=== PATIENT | male | born 1950 | race Caucasian/White ===

== ENCOUNTER 2016-09-22 00:01 | Inpatient (IN) | payer MEDICARE ==
[2016-09-22 00:24] VITALS: BP 121/70
[2016-09-22] MEDS: Sodium Chloride 0.9% 1,000 ML IV SCH ×2 (02:31→14:58)
[2016-09-22] MEDS: Albuterol/Ipratropium Neb 3 ML AERS HHN SCH ×6 (02:56→23:19)
[2016-09-22 07:23] LABS: % BASOPHILS 0.1 % (0.0-2.0); % EOSINOPHILS 0.1 % (0.0-5.0); % LYMPHOCYTES 9.5 % (20.0-50.0); % MONOCYTES 1.2 % (2.0-10.0); % NEUTROPHILS 89.1 % (40.0-80.0); HEMOGLOBIN 15.3 gm/dL (12.6-17.4); MEAN CELL VOLUME 91.5 fl (80-99); MEAN CORPUSCULAR HEMOGLOBIN 30.5 pg (27.0-31.0); MEAN CORPUSCULAR HGB CONC 33.4 pg (28.0-36.0); MEAN PLATELET VOLUME 8.9 fl; PLATELET COUNT 196 Th/cmm (150-400); RED BLOOD COUNT 5.02 Mil/cmm (3.80-5.80); RED CELL DISTRIBUTION WIDTH 13.2 % (11.5-20.0); WHITE BLOOD COUNT 4.5 Th/cmm (4.8-10.8)
[2016-09-22 07:51] LABS: ALB/GLOB RATIO 1.5 (1.0-1.8); ALKALINE PHOSPHATASE 65 U/L (34-104); ANION GAP 13.9 (7.0-16.0); BILIRUBIN,TOTAL 0.3 mg/dL (0.3-1.0); BUN - UREA NITROGEN 17 mg/dL (7-25); BUN/CREATININE RATIO 21.3; CALCIUM SERUM 9.6 mg/dL (8.6-10.3); CARBON DIOXIDE 26.4 mEq/L (21.0-31.0); CHLORIDE 106 mEq/L (98-107); CREATININE - SERUM 0.8 mg/dL (0.7-1.3); GLUCOSE 154 mg/dL (70-105); POTASSIUM SERUM 4.3 mEq/L (3.5-5.1); SGOT 19 U/L (13-39); SGPT/ALT 21 U/L (7-52); SODIUM SERUM 142 mEq/L (136-145)
--- NOTE | 2016-09-22 08:43 | Diagnostic Imaging Report ---
Portable chest x-ray HISTORY: Shortness of breath, COPD The overall heart size is normal. No acute focal pulmonary processes. No hilar or mediastinal abnormalities. Atherosclerotic calcification seen within the aortic arch. IMPRESSION: 1. No acute focal pulmonary processes 2. Atherosclerotic vascular changes
[2016-09-22] MEDS: methylPREDNISolone SS 40 mg Vial IVP SCH ×2 (09:00→18:04)
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
--- NOTE | 2016-09-22 21:18 | Admit Criteria Form ---
Admit Criteria Forms - Admit Criteria Diagnosis: COPD Clinical Indications for Admission to Inpatient Care (Place 'X' for any and all applicable criteria): Admission is indicated for ANY ONE of the following (1)(2)(3): [X]I. Acute exacerbation by high-risk comorbidity (e.g., pneumonia, dysrhythmia, heart failure, pleural effusion, pneumothorax) or severe underlying COPD (e.g., steroid dependent) [ ]II. Inpatient admission required rather than observation care (see Chronic Obstructive Pulmonary Disease: Observation Care) because of ANY ONE of the following: [ ]a) New or pre-existing signs or symptoms of COPD (eg, dyspnea or Tachypnea at rest or with minimal activity) that persist despite outpatient and observation care treatment [ ]b) New-onset hypoxemia (room air SaO2 less than 90%, PO2 less than 60 mm Hg (8.0 kPa)) that persists despite outpatient and observation care treatment [ ]c) Worsening of pre-existing hypoxemia (eg, new or increased requirement for supplemental oxygen to maintain oxygenation at baseline level) that persists despite outpatient and observation care treatment, with oxygen treatment needs performable only in acute inpatient setting [ ]d) Hypercarbia (PCO2 greater than 40 mm Hg (5.3 kPa))-induced respiratory acidosis (pH less than 7.35) that persists despite outpatient and observation care treatment [ ]e) Supplemental oxygen or respiratory treatments for over 24 hours that are performable only in acute inpatient setting [ ]f) Chest tube placement with active evacuation (e.g., suction, drainage) (5) [ ]g) Other condition, treatment or monitoring requiring inpatient admission [ ]III. Planned invasive surgical or diagnostic procedures requiring acute- care hospitalization [ ]IV. Acute respiratory failure (e.g., uncompensated hypercarbia, severe hypoxemia) [ ]V. Severe comorbid condition (e.g., severe steroid myopathy, acute vertebral fracture) that has acutely worsened pulmonary function [ ]. Confusion state, lethargy, obtundation, stupor or coma Extended stay beyond goal length of stay may be needed for (31)(32): [ ]a ) Respiratory Failure. [ ]b) Severe or persisting hypoxemia or hypercarbia [ ]c) Severe or persistent dyspnea [ ]d) Comorbidities (e.g. chronic heart failure, atrial fibrillation with rapid response, pneumonia) [ ]e) Malnutrition The original [facility] content created by [facility] has been revised. The portions of the content which have been revised are identified through the use of italic text or in bold, and [facility] has neither reviewed nor approved the modified material. All other unmodified content is copyright [facility]. Please see references footnoted in the original [facility] edition 2016 Admit Criteria Met?: Yes
[2016-09-23] MEDS: methylPREDNISolone SS 40 mg Vial IVP SCH ×4 (00:08→17:53)
[2016-09-23] MEDS: Albuterol/Ipratropium Neb 3 ML AERS HHN SCH ×6 (02:08→23:17)
[2016-09-23 05:44] LABS: HEMATOCRIT 43.8 % (39.0-49.0); HEMOGLOBIN 14.7 gm/dL (12.6-17.4); MEAN CELL VOLUME 91.2 fl (80-99); MEAN CORPUSCULAR HEMOGLOBIN 30.6 pg (27.0-31.0); MEAN CORPUSCULAR HGB CONC 33.6 pg (28.0-36.0); MEAN PLATELET VOLUME 7.8 fl; PLATELET COUNT 192 Th/cmm (150-400); RED CELL DISTRIBUTION WIDTH 13.2 % (11.5-20.0)
[2016-09-23 05:59] LABS: WHITE BLOOD COUNT 10.2 Th/cmm (4.8-10.8)
[2016-09-23 06:12] LABS: ALB/GLOB RATIO 1.5 (1.0-1.8); ALKALINE PHOSPHATASE 59 U/L (34-104); BILIRUBIN,TOTAL 0.3 mg/dL (0.3-1.0); BUN - UREA NITROGEN 20 mg/dL (7-25); CALCIUM SERUM 9.4 mg/dL (8.6-10.3); CARBON DIOXIDE 28.1 mEq/L (21.0-31.0); CHLORIDE 106 mEq/L (98-107); CREATININE - SERUM 0.8 mg/dL (0.7-1.3); GLUCOSE 154 mg/dL (70-105); POTASSIUM SERUM 4.1 mEq/L (3.5-5.1); SGOT 17 U/L (13-39); SGPT/ALT 20 U/L (7-52); SODIUM SERUM 140 mEq/L (136-145)
[2016-09-23 08:21] LABS: BAND NEUTROPHILE 2 % (0-10); NEUTROPHILS 92 % (40-80); PLATELET ESTIMATE ADEQUATE (NORMAL); TOTAL CELLS COUNTED 100
--- NOTE | 2016-09-23 12:36 | General Progress Note ---
Subjective - Review of Systems Service Date: 09/23/16 Subjective: I am breathing better Objective - Results Result Diagrams: 09/23/16 05:28 09/23/16 05:28 Recent Labs: Laboratory Last Values WBC 10.2 Th/cmm (4.8-10.8) D 09/23/16 05:28 RBC 4.80 Mil/cmm (3.80-5.80) 09/23/16 05:28 Hgb 14.7 gm/dL (12.6-17.4) 09/23/16 05:28 Hct 43.8 % (39.0-49.0) 09/23/16 05:28 MCV 91.2 fl (80-99) 09/23/16 05:28 MCH 30.6 pg (27.0-31.0) 09/23/16 05:28 MCHC Differential 33.6 pg (28.0-36.0) 09/23/16 05:28 RDW 13.2 % (11.5-20.0) 09/23/16 05:28 Plt Count 192 Th/cmm (150-400) 09/23/16 05:28 MPV 7.8 fl 09/23/16 05:28 Neutrophils % 89.1 % (40.0-80.0) H 09/22/16 06:00 Band Neutrophils % 2 % (0-10) 09/23/16 05:28 Lymphocytes % 9.5 % (20.0-50.0) L 09/22/16 06:00 Monocytes % 1.2 % (2.0-10.0) L 09/22/16 06:00 Eosinophils % 0.1 % (0.0-5.0) 09/22/16 06:00 Basophils % 0.1 % (0.0-2.0) 09/22/16 06:00 Neutrophils (Manual) 92 % (40-80) H 09/23/16 05:28 Lymphocytes 4 % (20-50) L 09/23/16 05:28 Monocytes 2 % (2-10) 09/23/16 05:28 Platelet Estimate ADEQUATE (NORMAL) 09/23/16 05:28 Sodium 140 mEq/L (136-145) 09/23/16 05:28 Potassium 4.1 mEq/L (3.5-5.1) 09/23/16 05:28 Chloride 106 mEq/L (98-107) 09/23/16 05:28 Carbon Dioxide 28.1 mEq/L (21.0-31.0) 09/23/16 05:28 Anion Gap 10.0 (7.0-16.0) 09/23/16 05:28 BUN 20 mg/dL (7-25) 09/23/16 05:28 Creatinine 0.8 mg/dL (0.7-1.3) 09/23/16 05:28 Est GFR ( Amer) > 60.0 ml/min (>90) 09/23/16 05:28 Est GFR (Non-Af Amer) > 60.0 ml/min 09/23/16 05:28 BUN/Creatinine Ratio 25.0 09/23/16 05:28 Glucose 154 mg/dL (70-105) H 09/23/16 05:28 POC Glucose 173 MG/DL (70 - 105) H 09/22/16 08:14 Calcium 9.4 mg/dL (8.6-10.3) 09/23/16 05:28 Total Bilirubin 0.3 mg/dL (0.3-1.0) 09/23/16 05:28 AST 17 U/L (13-39) 09/23/16 05:28 ALT 20 U/L (7-52) 09/23/16 05:28 Alkaline Phosphatase 59 U/L (34-104) 09/23/16 05:28 Total Protein 6.7 gm/dL (6.0-8.3) 09/23/16 05:28 Albumin 4.0 gm/dL (4.2-5.5) L 09/23/16 05:28 Globulin 2.7 gm/dL 09/23/16 05:28 Albumin/Globulin Ratio 1.5 (1.0-1.8) 09/23/16 05:28 TSH 0.56 uIU/ml (0.34-5.60) 09/22/16 06:00 - Physical Exam Vitals and I&O: Vital Signs Temp 98.2 F 09/23/16 08:00 Pulse 97 09/23/16 08:00 Resp 20 09/23/16 11:46 BP 128/86 09/23/16 08:00 Pulse Ox 96 09/23/16 08:00 Intake & Output 09/22/16 09/23/16 09/23/16 18:59 06:59 18:59 Intake Total 1233.75 250 Output Total 600 Balance 633.75 250 Intake: Intake, IV Amount 933.75 50 Sodium Chloride 0.9% 1, 933.75 000 ml @ 75 mls/hr IV . [id number] [facility] Rx#:[id number] cefTRIAXone 1 gm In 50 Dextrose 5% 50 ml @ 100 mls/hr IV Q24H [facility] Rx#: [id number] Oral 300 200 Output: Urine 600 Active Medications: Current Medications Acetaminophen (Tylenol) 650 mg PO Q4H PRN PRN Reason: pain Stop: 11/21/16 01:14 Albuterol/Ipratropium (Duoneb Neb) 3 ml HHN Q4HRT [facility] Stop: 11/21/16 02:59 Last Admin: 09/23/16 10:58 Dose: 3 ml Ceftriaxone Sodium 1 gm/ (Dextrose) 50 mls @ 100 mls/hr IV Q24H [facility] Stop: 11/21/16 01:59 Last Infusion: 09/23/16 02:41 Dose: Infused Lorazepam (Ativan) 0.5 mg PO DAILY PRN; Protocol PRN Reason: Anxiety Stop: 11/21/16 01:14 Last Admin: 09/22/16 23:20 Dose: 0.5 mg Methylprednisolone Sodium Succinate (Solu-Medrol) 80 mg IVP Q6HR [facility] Stop: 11/22/16 00:00 Last Admin: 09/23/16 11:32 Dose: 80 mg General: Alert, Oriented x3, Cooperative, No acute distress HEENT: Atraumatic Neck: Supple Cardiovascular: Regular rate Lungs: Other (Bilateral decreased air entry, bilateral whezzing) Abdomen: Bowel sounds, Soft Extremities: Other (No edema) Neurological: Normal gait Skin: Other (Warm and dry) Psych/Mental Status: Mental status NL Assessment/Plan - Assessment Assessment: Patient is in nasal O2, breathing better. Dx: COPD exacerbation - Plan Plan: patient is nasal O2, IV ns, Albuterol breathing treatment, AB and corticoids. Follow by Pulmonology. Will continue to monitor
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
[2016-09-24] MEDS: methylPREDNISolone SS 40 mg Vial IVP SCH ×4 (00:55→17:21)
[2016-09-24] MEDS: Albuterol/Ipratropium Neb 3 ML AERS HHN SCH ×6 (03:15→23:23)
--- NOTE | 2016-09-24 08:57 | General Progress Note ---
Subjective - Review of Systems Service Date: 09/24/16 Subjective: I am breathing better. Objective - Results Result Diagrams: 09/23/16 05:28 09/23/16 05:28 Recent Labs: Laboratory Last Values WBC 10.2 Th/cmm (4.8-10.8) D 09/23/16 05:28 RBC 4.80 Mil/cmm (3.80-5.80) 09/23/16 05:28 Hgb 14.7 gm/dL (12.6-17.4) 09/23/16 05:28 Hct 43.8 % (39.0-49.0) 09/23/16 05:28 MCV 91.2 fl (80-99) 09/23/16 05:28 MCH 30.6 pg (27.0-31.0) 09/23/16 05:28 MCHC Differential 33.6 pg (28.0-36.0) 09/23/16 05:28 RDW 13.2 % (11.5-20.0) 09/23/16 05:28 Plt Count 192 Th/cmm (150-400) 09/23/16 05:28 MPV 7.8 fl 09/23/16 05:28 Neutrophils % 89.1 % (40.0-80.0) H 09/22/16 06:00 Band Neutrophils % 2 % (0-10) 09/23/16 05:28 Lymphocytes % 9.5 % (20.0-50.0) L 09/22/16 06:00 Monocytes % 1.2 % (2.0-10.0) L 09/22/16 06:00 Eosinophils % 0.1 % (0.0-5.0) 09/22/16 06:00 Basophils % 0.1 % (0.0-2.0) 09/22/16 06:00 Neutrophils (Manual) 92 % (40-80) H 09/23/16 05:28 Lymphocytes 4 % (20-50) L 09/23/16 05:28 Monocytes 2 % (2-10) 09/23/16 05:28 Platelet Estimate ADEQUATE (NORMAL) 09/23/16 05:28 Sodium 140 mEq/L (136-145) 09/23/16 05:28 Potassium 4.1 mEq/L (3.5-5.1) 09/23/16 05:28 Chloride 106 mEq/L (98-107) 09/23/16 05:28 Carbon Dioxide 28.1 mEq/L (21.0-31.0) 09/23/16 05:28 Anion Gap 10.0 (7.0-16.0) 09/23/16 05:28 BUN 20 mg/dL (7-25) 09/23/16 05:28 Creatinine 0.8 mg/dL (0.7-1.3) 09/23/16 05:28 Est GFR ( Amer) > 60.0 ml/min (>90) 09/23/16 05:28 Est GFR (Non-Af Amer) > 60.0 ml/min 09/23/16 05:28 BUN/Creatinine Ratio 25.0 09/23/16 05:28 Glucose 154 mg/dL (70-105) H 09/23/16 05:28 POC Glucose 173 MG/DL (70 - 105) H 09/22/16 08:14 Calcium 9.4 mg/dL (8.6-10.3) 09/23/16 05:28 Total Bilirubin 0.3 mg/dL (0.3-1.0) 09/23/16 05:28 AST 17 U/L (13-39) 09/23/16 05:28 ALT 20 U/L (7-52) 09/23/16 05:28 Alkaline Phosphatase 59 U/L (34-104) 09/23/16 05:28 Total Protein 6.7 gm/dL (6.0-8.3) 09/23/16 05:28 Albumin 4.0 gm/dL (4.2-5.5) L 09/23/16 05:28 Globulin 2.7 gm/dL 09/23/16 05:28 Albumin/Globulin Ratio 1.5 (1.0-1.8) 09/23/16 05:28 TSH 0.56 uIU/ml (0.34-5.60) 09/22/16 06:00 - Physical Exam Vitals and I&O: Vital Signs Temp 98.6 F 09/24/16 00:00 Pulse 92 09/24/16 08:10 Resp 18 09/24/16 08:10 BP 138/96 09/24/16 00:00 Pulse Ox 94 09/24/16 08:10 Intake & Output 09/23/16 09/24/16 09/24/16 18:59 06:59 18:59 Intake Total 800 450 Balance 800 450 Intake: Intake, IV Amount 50 cefTRIAXone 1 gm In 50 Dextrose 5% 50 ml @ 100 mls/hr IV Q24H [facility] Rx#: [id number] Oral 800 400 Other: # Voids 2 2 Active Medications: Current Medications Acetaminophen (Tylenol) 650 mg PO Q4H PRN PRN Reason: pain Stop: 11/21/16 01:14 Albuterol/Ipratropium (Duoneb Neb) 3 ml HHN Q4HRT [facility] Stop: 11/21/16 02:59 Last Admin: 09/24/16 07:52 Dose: 3 ml Ceftriaxone Sodium 1 gm/ (Dextrose) 50 mls @ 100 mls/hr IV Q24H [facility] Stop: 11/21/16 01:59 Last Infusion: 09/24/16 02:30 Dose: Infused Lorazepam (Ativan) 0.5 mg PO DAILY PRN; Protocol PRN Reason: Anxiety Stop: 11/21/16 01:14 Last Admin: 09/24/16 00:56 Dose: 0.5 mg Methylprednisolone Sodium Succinate (Solu-Medrol) 80 mg IVP Q6HR [facility] Stop: 11/22/16 00:00 Last Admin: 09/24/16 06:58 Dose: 80 mg General: Alert, Oriented x3, Cooperative, Mild distress HEENT: Atraumatic Neck: Supple Cardiovascular: Regular rate Lungs: Other (Bilateral decreased air entry. Bilateral whezzing) Abdomen: Bowel sounds, Soft Extremities: Other (No edema) Neurological: Normal gait Skin: Other (Warm and dry) Psych/Mental Status: Mental status NL Assessment/Plan - Assessment Assessment: Patient is in nasal O2, breathing better. Yesterday PT eval was done and patient was able to walk alone well but O2 saturation drop to below 90. Patient will need O2 machine. Dx: COPD exacerbation - Plan Plan: patient is nasal O2, IV ns, Albuterol breathing treatment, AB and corticoids. Follow by Pulmonology. Will continue to monitor.
[2016-09-24] MEDS: Budesonide 0.5 Mg/2 mL Ud HHN SCH (19:07)
[2016-09-25] MEDS: Albuterol/Ipratropium Neb 3 ML AERS HHN SCH ×5 (03:17→19:24)
[2016-09-25] MEDS: methylPREDNISolone SS 40 mg Vial IVP SCH ×4 (06:49→20:46)
[2016-09-25] MEDS: Budesonide 0.5 Mg/2 mL Ud HHN SCH ×2 (07:19→19:24)
--- NOTE | 2016-09-25 09:01 | General Progress Note ---
Subjective - Review of Systems Service Date: 09/25/16 Subjective: I am breathing better. Objective - Results Result Diagrams: 09/23/16 05:28 09/23/16 05:28 Recent Labs: Laboratory Last Values WBC 10.2 Th/cmm (4.8-10.8) D 09/23/16 05:28 RBC 4.80 Mil/cmm (3.80-5.80) 09/23/16 05:28 Hgb 14.7 gm/dL (12.6-17.4) 09/23/16 05:28 Hct 43.8 % (39.0-49.0) 09/23/16 05:28 MCV 91.2 fl (80-99) 09/23/16 05:28 MCH 30.6 pg (27.0-31.0) 09/23/16 05:28 MCHC Differential 33.6 pg (28.0-36.0) 09/23/16 05:28 RDW 13.2 % (11.5-20.0) 09/23/16 05:28 Plt Count 192 Th/cmm (150-400) 09/23/16 05:28 MPV 7.8 fl 09/23/16 05:28 Neutrophils % 89.1 % (40.0-80.0) H 09/22/16 06:00 Band Neutrophils % 2 % (0-10) 09/23/16 05:28 Lymphocytes % 9.5 % (20.0-50.0) L 09/22/16 06:00 Monocytes % 1.2 % (2.0-10.0) L 09/22/16 06:00 Eosinophils % 0.1 % (0.0-5.0) 09/22/16 06:00 Basophils % 0.1 % (0.0-2.0) 09/22/16 06:00 Neutrophils (Manual) 92 % (40-80) H 09/23/16 05:28 Lymphocytes 4 % (20-50) L 09/23/16 05:28 Monocytes 2 % (2-10) 09/23/16 05:28 Platelet Estimate ADEQUATE (NORMAL) 09/23/16 05:28 Sodium 140 mEq/L (136-145) 09/23/16 05:28 Potassium 4.1 mEq/L (3.5-5.1) 09/23/16 05:28 Chloride 106 mEq/L (98-107) 09/23/16 05:28 Carbon Dioxide 28.1 mEq/L (21.0-31.0) 09/23/16 05:28 Anion Gap 10.0 (7.0-16.0) 09/23/16 05:28 BUN 20 mg/dL (7-25) 09/23/16 05:28 Creatinine 0.8 mg/dL (0.7-1.3) 09/23/16 05:28 Est GFR ( Amer) > 60.0 ml/min (>90) 09/23/16 05:28 Est GFR (Non-Af Amer) > 60.0 ml/min 09/23/16 05:28 BUN/Creatinine Ratio 25.0 09/23/16 05:28 Glucose 154 mg/dL (70-105) H 09/23/16 05:28 POC Glucose 173 MG/DL (70 - 105) H 09/22/16 08:14 Calcium 9.4 mg/dL (8.6-10.3) 09/23/16 05:28 Total Bilirubin 0.3 mg/dL (0.3-1.0) 09/23/16 05:28 AST 17 U/L (13-39) 09/23/16 05:28 ALT 20 U/L (7-52) 09/23/16 05:28 Alkaline Phosphatase 59 U/L (34-104) 09/23/16 05:28 Total Protein 6.7 gm/dL (6.0-8.3) 09/23/16 05:28 Albumin 4.0 gm/dL (4.2-5.5) L 09/23/16 05:28 Globulin 2.7 gm/dL 09/23/16 05:28 Albumin/Globulin Ratio 1.5 (1.0-1.8) 09/23/16 05:28 TSH 0.56 uIU/ml (0.34-5.60) 09/22/16 06:00 - Physical Exam Vitals and I&O: Vital Signs Temp 98.0 F 09/25/16 08:00 Pulse 82 09/25/16 08:00 Resp 20 09/25/16 08:00 BP 124/75 09/25/16 08:00 Pulse Ox 94 09/25/16 08:00 Intake & Output 09/24/16 09/25/16 09/25/16 18:59 06:59 18:59 Intake Total 1500 500 Balance 1500 500 Intake: Oral 1500 500 Other: # Voids 3 # Bowel Movements 1 Stool Characteristics Soft Formed Active Medications: Current Medications Acetaminophen (Tylenol) 650 mg PO Q4H PRN PRN Reason: pain Stop: 11/21/16 01:14 Albuterol/Ipratropium (Duoneb Neb) 3 ml HHN Q4HRT [facility] Stop: 11/21/16 02:59 Last Admin: 09/25/16 07:19 Dose: 3 ml Budesonide (Pulmicort) 0.5 mg HHN BIDRT [facility] Stop: 11/23/16 18:59 Last Admin: 09/25/16 07:19 Dose: 0.5 mg Ceftriaxone Sodium 1 gm/ (Dextrose) 50 mls @ 100 mls/hr IV Q24H [facility] Stop: 11/21/16 01:59 Last Admin: 09/25/16 03:00 Dose: 100 mls/hr Lorazepam (Ativan) 0.5 mg PO DAILY PRN; Protocol PRN Reason: Anxiety Stop: 11/21/16 01:14 Last Admin: 09/24/16 20:41 Dose: 0.5 mg Methylprednisolone Sodium Succinate (Solu-Medrol) 80 mg IVP Q6HR [facility] Stop: 11/22/16 00:00 Last Admin: 09/25/16 06:49 Dose: 80 mg Nicotine (Nicotine Transdermal System) 21 mg TD DAILY [facility] Stop: 11/24/16 08:59 General: Alert, Oriented x3, Cooperative, No acute distress HEENT: Atraumatic Neck: Supple Cardiovascular: Regular rate Lungs: Other (Bilateral decresed air entry and bilateral whezzing) Abdomen: Bowel sounds, Soft Extremities: Other (No edema) Neurological: Normal gait Skin: Other (Warm and dry) Psych/Mental Status: Mental status NL Assessment/Plan - Assessment Assessment: Patient is in nasal O2, breathing better. Continue with wheezing. Dx: COPD exacerbation - Plan Plan: patient is nasal O2, IV ns, Albuterol breathing treatment, AB and corticoids. Follow by Pulmonology. Possible transfer to a SNF. Will continue to monitor.
[2016-09-25] MEDS: Nicotine 21 mg/24 hr Tdm TD SCH (09:18)
[2016-09-26] MEDS: Albuterol/Ipratropium Neb 3 ML AERS HHN SCH ×6 (03:11→23:43)
[2016-09-26] MEDS: Budesonide 0.5 Mg/2 mL Ud HHN SCH ×2 (06:46→18:52)
[2016-09-26] MEDS: Nicotine 21 mg/24 hr Tdm TD SCH (08:55)
[2016-09-26] MEDS: methylPREDNISolone SS 40 mg Vial IVP SCH ×2 (08:56→20:22)
--- NOTE | 2016-09-26 09:16 | General Progress Note ---
Subjective - Review of Systems Service Date: 09/26/26 Subjective: I am breathing better. Objective - Results Result Diagrams: 09/23/16 05:28 09/23/16 05:28 Recent Labs: Laboratory Last Values WBC 10.2 Th/cmm (4.8-10.8) D 09/23/16 05:28 RBC 4.80 Mil/cmm (3.80-5.80) 09/23/16 05:28 Hgb 14.7 gm/dL (12.6-17.4) 09/23/16 05:28 Hct 43.8 % (39.0-49.0) 09/23/16 05:28 MCV 91.2 fl (80-99) 09/23/16 05:28 MCH 30.6 pg (27.0-31.0) 09/23/16 05:28 MCHC Differential 33.6 pg (28.0-36.0) 09/23/16 05:28 RDW 13.2 % (11.5-20.0) 09/23/16 05:28 Plt Count 192 Th/cmm (150-400) 09/23/16 05:28 MPV 7.8 fl 09/23/16 05:28 Neutrophils % 89.1 % (40.0-80.0) H 09/22/16 06:00 Band Neutrophils % 2 % (0-10) 09/23/16 05:28 Lymphocytes % 9.5 % (20.0-50.0) L 09/22/16 06:00 Monocytes % 1.2 % (2.0-10.0) L 09/22/16 06:00 Eosinophils % 0.1 % (0.0-5.0) 09/22/16 06:00 Basophils % 0.1 % (0.0-2.0) 09/22/16 06:00 Neutrophils (Manual) 92 % (40-80) H 09/23/16 05:28 Lymphocytes 4 % (20-50) L 09/23/16 05:28 Monocytes 2 % (2-10) 09/23/16 05:28 Platelet Estimate ADEQUATE (NORMAL) 09/23/16 05:28 Sodium 140 mEq/L (136-145) 09/23/16 05:28 Potassium 4.1 mEq/L (3.5-5.1) 09/23/16 05:28 Chloride 106 mEq/L (98-107) 09/23/16 05:28 Carbon Dioxide 28.1 mEq/L (21.0-31.0) 09/23/16 05:28 Anion Gap 10.0 (7.0-16.0) 09/23/16 05:28 BUN 20 mg/dL (7-25) 09/23/16 05:28 Creatinine 0.8 mg/dL (0.7-1.3) 09/23/16 05:28 Est GFR ( Amer) > 60.0 ml/min (>90) 09/23/16 05:28 Est GFR (Non-Af Amer) > 60.0 ml/min 09/23/16 05:28 BUN/Creatinine Ratio 25.0 09/23/16 05:28 Glucose 154 mg/dL (70-105) H 09/23/16 05:28 POC Glucose 173 MG/DL (70 - 105) H 09/22/16 08:14 Calcium 9.4 mg/dL (8.6-10.3) 09/23/16 05:28 Total Bilirubin 0.3 mg/dL (0.3-1.0) 09/23/16 05:28 AST 17 U/L (13-39) 09/23/16 05:28 ALT 20 U/L (7-52) 09/23/16 05:28 Alkaline Phosphatase 59 U/L (34-104) 09/23/16 05:28 Total Protein 6.7 gm/dL (6.0-8.3) 09/23/16 05:28 Albumin 4.0 gm/dL (4.2-5.5) L 09/23/16 05:28 Globulin 2.7 gm/dL 09/23/16 05:28 Albumin/Globulin Ratio 1.5 (1.0-1.8) 09/23/16 05:28 TSH 0.56 uIU/ml (0.34-5.60) 09/22/16 06:00 - Physical Exam Vitals and I&O: Vital Signs Temp 98.3 F 09/26/16 04:00 Pulse 83 09/26/16 07:13 Resp 18 09/26/16 07:13 BP 140/85 09/26/16 04:00 Pulse Ox 96 09/26/16 07:13 Intake & Output 09/25/16 09/26/16 09/26/16 18:59 06:59 18:59 Intake Total 1080 410 Balance 1080 410 Intake: Intake, IV Amount 50 cefTRIAXone 1 gm In 50 Dextrose 5% 50 ml @ 100 mls/hr IV Q24H [facility] Rx#: [id number] Oral 1080 360 Other: # Voids 700 3 Active Medications: Current Medications Acetaminophen (Tylenol) 650 mg PO Q4H PRN PRN Reason: pain Stop: 11/21/16 01:14 Albuterol/Ipratropium (Duoneb Neb) 3 ml HHN Q4HRT [facility] Stop: 11/21/16 02:59 Last Admin: 09/26/16 06:46 Dose: 3 ml Budesonide (Pulmicort) 0.5 mg HHN BIDRT [facility] Stop: 11/23/16 18:59 Last Admin: 09/26/16 06:46 Dose: 0.5 mg Ceftriaxone Sodium 1 gm/ (Dextrose) 50 mls @ 100 mls/hr IV Q24H [facility] Stop: 11/21/16 01:59 Last Infusion: 09/26/16 02:05 Dose: Infused Lorazepam (Ativan) 0.5 mg PO DAILY PRN; Protocol PRN Reason: Anxiety Stop: 11/21/16 01:14 Last Admin: 09/25/16 20:46 Dose: 0.5 mg Methylprednisolone Sodium Succinate (Solu-Medrol) 80 mg IVP Q12HR [facility] Stop: 11/24/16 20:59 Last Admin: 09/26/16 08:56 Dose: 80 mg Nicotine (Nicotine Transdermal System) 21 mg TD DAILY [facility] Stop: 11/24/16 08:59 Last Admin: 09/26/16 08:55 Dose: 21 mg Zolpidem Tartrate (Ambien) 5 mg PO HS PRN PRN Reason: Insomnia Stop: 11/25/16 09:12 General: Alert, Oriented x3, Cooperative, Mild distress HEENT: Atraumatic Neck: Supple Cardiovascular: Regular rate Lungs: Clear to auscultation Abdomen: Bowel sounds, Soft Extremities: Other (No edema) Neurological: Normal gait Skin: Other (Warm and dry) Psych/Mental Status: Mental status NL Assessment/Plan - Assessment Assessment: Patient is in nasal O2, breathing better. Continue with wheezing, not improving as expected. Dx: COPD exacerbation. - Plan Plan: patient is nasal O2, IV ns, Albuterol breathing treatment, AB and corticoids. Follow by Pulmonology. Will continue to monitor.
--- NOTE | 2016-09-26 09:55 | Diagnostic Imaging Report ---
CHEST X-RAY: AP view INDICATION: COPD exasperation COMPARISON: 09/22/2016 FINDINGS: The bilateral costophrenic angles are incompletely visualized. No focal consolidation or effusions. Heart size is normal. Atherosclerosis of aorta is noted. The osseous structures are intact. IMPRESSION: Chronic lung changes and probable COPD. No focal consolidation identified. Atherosclerotic vascular disease.
[2016-09-26 10:51] LABS: MEAN CELL VOLUME 92.3 fl (80-99); MEAN CORPUSCULAR HEMOGLOBIN 31.1 pg (27.0-31.0); MEAN CORPUSCULAR HGB CONC 33.7 pg (28.0-36.0); MEAN PLATELET VOLUME 8.8 fl; PLATELET COUNT 207 Th/cmm (150-400); RED BLOOD COUNT 5.37 Mil/cmm (3.80-5.80); RED CELL DISTRIBUTION WIDTH 13.2 % (11.5-20.0); WHITE BLOOD COUNT 10.4 Th/cmm (4.8-10.8)
[2016-09-26 10:58] LABS: ALB/GLOB RATIO 1.5 (1.0-1.8); ALKALINE PHOSPHATASE 54 U/L (34-104); ANION GAP 5.1 (7.0-16.0); BILIRUBIN,TOTAL 0.5 mg/dL (0.3-1.0); BUN - UREA NITROGEN 22 mg/dL (7-25); BUN/CREATININE RATIO 24.4; CALCIUM SERUM 9.5 mg/dL (8.6-10.3); CHLORIDE 102 mEq/L (98-107); CREATININE - SERUM 0.9 mg/dL (0.7-1.3); GLUCOSE 163 mg/dL (70-105); HEMATOCRIT 49.6 % (39.0-49.0); HEMOGLOBIN 16.7 gm/dL (12.6-17.4); POTASSIUM SERUM 4.1 mEq/L (3.5-5.1); SGOT 19 U/L (13-39); SGPT/ALT 25 U/L (7-52); SODIUM SERUM 135 mEq/L (136-145)
[2016-09-26 11:37] LABS: BAND NEUTROPHILE 1 % (0-10); NEUTROPHILS 88 % (40-80); PLATELET ESTIMATE ADEQUATE (NORMAL); PLATELET MORPHOLOGY NORMAL (NORMAL); TOTAL CELLS COUNTED 100
[2016-09-27] MEDS: Albuterol/Ipratropium Neb 3 ML AERS HHN SCH ×6 (02:55→22:23)
[2016-09-27] MEDS: Budesonide 0.5 Mg/2 mL Ud HHN SCH ×2 (06:53→18:33)
[2016-09-27] MEDS: Nicotine 21 mg/24 hr Tdm TD SCH (08:17)
[2016-09-27] MEDS: methylPREDNISolone SS 40 mg Vial IVP SCH ×2 (08:19→20:30)
--- NOTE | 2016-09-27 09:24 | General Progress Note ---
Subjective - Review of Systems Service Date: 09/27/16 Subjective: I want to go home Objective - Results Result Diagrams: 09/26/16 10:15 09/26/16 10:15 Recent Labs: Laboratory Last Values WBC 10.4 Th/cmm (4.8-10.8) 09/26/16 10:15 RBC 5.37 Mil/cmm (3.80-5.80) 09/26/16 10:15 Hgb 16.7 gm/dL (12.6-17.4) D 09/26/16 10:15 Hct 49.6 % (39.0-49.0) H D 09/26/16 10:15 MCV 92.3 fl (80-99) 09/26/16 10:15 MCH 31.1 pg (27.0-31.0) H 09/26/16 10:15 MCHC Differential 33.7 pg (28.0-36.0) 09/26/16 10:15 RDW 13.2 % (11.5-20.0) 09/26/16 10:15 Plt Count 207 Th/cmm (150-400) 09/26/16 10:15 MPV 8.8 fl 09/26/16 10:15 Neutrophils % 89.1 % (40.0-80.0) H 09/22/16 06:00 Band Neutrophils % 1 % (0-10) 09/26/16 10:15 Lymphocytes % 9.5 % (20.0-50.0) L 09/22/16 06:00 Monocytes % 1.2 % (2.0-10.0) L 09/22/16 06:00 Eosinophils % 0.1 % (0.0-5.0) 09/22/16 06:00 Basophils % 0.1 % (0.0-2.0) 09/22/16 06:00 Neutrophils (Manual) 88 % (40-80) H 09/26/16 10:15 Lymphocytes 8 % (20-50) L 09/26/16 10:15 Monocytes 3 % (2-10) 09/26/16 10:15 Platelet Estimate ADEQUATE (NORMAL) 09/26/16 10:15 Platelet Morphology NORMAL (NORMAL) 09/26/16 10:15 RBC Morph Micro Appear NORMAL (NORMAL) 09/26/16 10:15 Sodium 135 mEq/L (136-145) L 09/26/16 10:15 Potassium 4.1 mEq/L (3.5-5.1) 09/26/16 10:15 Chloride 102 mEq/L (98-107) 09/26/16 10:15 Carbon Dioxide 32.0 mEq/L (21.0-31.0) H 09/26/16 10:15 Anion Gap 5.1 (7.0-16.0) L 09/26/16 10:15 BUN 22 mg/dL (7-25) 09/26/16 10:15 Creatinine 0.9 mg/dL (0.7-1.3) 09/26/16 10:15 Est GFR ( Amer) > 60.0 ml/min (>90) 09/26/16 10:15 Est GFR (Non-Af Amer) > 60.0 ml/min 09/26/16 10:15 BUN/Creatinine Ratio 24.4 09/26/16 10:15 Glucose 163 mg/dL (70-105) H 09/26/16 10:15 POC Glucose 173 MG/DL (70 - 105) H 09/22/16 08:14 Calcium 9.5 mg/dL (8.6-10.3) 09/26/16 10:15 Total Bilirubin 0.5 mg/dL (0.3-1.0) 09/26/16 10:15 AST 19 U/L (13-39) 09/26/16 10:15 ALT 25 U/L (7-52) 09/26/16 10:15 Alkaline Phosphatase 54 U/L (34-104) 09/26/16 10:15 Total Protein 6.7 gm/dL (6.0-8.3) 09/26/16 10:15 Albumin 4.0 gm/dL (4.2-5.5) L 09/26/16 10:15 Globulin 2.7 gm/dL 09/26/16 10:15 Albumin/Globulin Ratio 1.5 (1.0-1.8) 09/26/16 10:15 TSH 0.56 uIU/ml (0.34-5.60) 09/22/16 06:00 - Physical Exam Vitals and I&O: Vital Signs Temp 97.9 F 09/27/16 07:59 Pulse 76 09/27/16 07:59 Resp 20 09/27/16 07:59 BP 123/74 09/27/16 07:59 Pulse Ox 97 09/27/16 07:59 Intake & Output 09/26/16 09/27/16 09/27/16 18:59 06:59 18:59 Intake Total 900 480 Balance 900 480 Intake: Oral 900 480 Other: # Voids 3 3 # Bowel Movements 0 Active Medications: Current Medications Acetaminophen (Tylenol) 650 mg PO Q4H PRN PRN Reason: pain Stop: 11/21/16 01:14 Albuterol/Ipratropium (Duoneb Neb) 3 ml HHN Q4HRT [facility] Stop: 11/21/16 02:59 Last Admin: 09/27/16 06:53 Dose: 3 ml Budesonide (Pulmicort) 0.5 mg HHN BIDRT [facility] Stop: 11/23/16 18:59 Last Admin: 09/27/16 06:53 Dose: 0.5 mg Ceftriaxone Sodium 1 gm/ (Dextrose) 50 mls @ 100 mls/hr IV Q24H [facility] Stop: 11/21/16 01:59 Last Admin: 09/27/16 01:28 Dose: Not Given Lorazepam (Ativan) 0.5 mg PO DAILY PRN; Protocol PRN Reason: Anxiety Stop: 11/21/16 01:14 Last Admin: 09/25/16 20:46 Dose: 0.5 mg Methylprednisolone Sodium Succinate (Solu-Medrol) 40 mg IVP Q12HR [facility] Stop: 11/24/16 20:59 Last Admin: 09/27/16 08:19 Dose: 40 mg Nicotine (Nicotine Transdermal System) 21 mg TD DAILY [facility] Stop: 11/24/16 08:59 Last Admin: 09/27/16 08:17 Dose: 21 mg Zolpidem Tartrate (Ambien) 5 mg PO HS PRN PRN Reason: Insomnia Stop: 11/25/16 09:12 Last Admin: 09/26/16 20:22 Dose: 5 mg General: Alert, Oriented x3, Cooperative, No acute distress HEENT: Atraumatic Neck: Supple Cardiovascular: Regular rate Lungs: Other (Rude respiration, Occasional wheezing) Abdomen: Bowel sounds, Soft Extremities: Other (No edema) Neurological: Normal gait Skin: Other (Warm and dry) Psych/Mental Status: Mental status NL Assessment/Plan - Assessment Assessment: Patient is in nasal O2, breathing better. Occasional wheezing, Dx: COPD exacerbation. - Plan Plan: patient is nasal O2, IV ns, Albuterol breathing treatment, AB and corticoids. Follow by Pulmonology. Will continue to monitor.
[2016-09-28] MEDS: Albuterol/Ipratropium Neb 3 ML AERS HHN SCH ×6 (02:31→23:41)
[2016-09-28] MEDS: Budesonide 0.5 Mg/2 mL Ud HHN SCH ×2 (06:36→19:17)
[2016-09-28] MEDS: methylPREDNISolone SS 40 mg Vial IVP SCH ×2 (08:30→21:14)
[2016-09-28] MEDS: Nicotine 21 mg/24 hr Tdm TD SCH (08:30)
--- NOTE | 2016-09-28 10:01 | General Progress Note ---
Subjective - Review of Systems Service Date: 09/28/16 Subjective: I want to go home. Objective - Results Result Diagrams: 09/26/16 10:15 09/26/16 10:15 Recent Labs: Laboratory Last Values WBC 10.4 Th/cmm (4.8-10.8) 09/26/16 10:15 RBC 5.37 Mil/cmm (3.80-5.80) 09/26/16 10:15 Hgb 16.7 gm/dL (12.6-17.4) D 09/26/16 10:15 Hct 49.6 % (39.0-49.0) H D 09/26/16 10:15 MCV 92.3 fl (80-99) 09/26/16 10:15 MCH 31.1 pg (27.0-31.0) H 09/26/16 10:15 MCHC Differential 33.7 pg (28.0-36.0) 09/26/16 10:15 RDW 13.2 % (11.5-20.0) 09/26/16 10:15 Plt Count 207 Th/cmm (150-400) 09/26/16 10:15 MPV 8.8 fl 09/26/16 10:15 Neutrophils % 89.1 % (40.0-80.0) H 09/22/16 06:00 Band Neutrophils % 1 % (0-10) 09/26/16 10:15 Lymphocytes % 9.5 % (20.0-50.0) L 09/22/16 06:00 Monocytes % 1.2 % (2.0-10.0) L 09/22/16 06:00 Eosinophils % 0.1 % (0.0-5.0) 09/22/16 06:00 Basophils % 0.1 % (0.0-2.0) 09/22/16 06:00 Neutrophils (Manual) 88 % (40-80) H 09/26/16 10:15 Lymphocytes 8 % (20-50) L 09/26/16 10:15 Monocytes 3 % (2-10) 09/26/16 10:15 Platelet Estimate ADEQUATE (NORMAL) 09/26/16 10:15 Platelet Morphology NORMAL (NORMAL) 09/26/16 10:15 RBC Morph Micro Appear NORMAL (NORMAL) 09/26/16 10:15 Sodium 135 mEq/L (136-145) L 09/26/16 10:15 Potassium 4.1 mEq/L (3.5-5.1) 09/26/16 10:15 Chloride 102 mEq/L (98-107) 09/26/16 10:15 Carbon Dioxide 32.0 mEq/L (21.0-31.0) H 09/26/16 10:15 Anion Gap 5.1 (7.0-16.0) L 09/26/16 10:15 BUN 22 mg/dL (7-25) 09/26/16 10:15 Creatinine 0.9 mg/dL (0.7-1.3) 09/26/16 10:15 Est GFR ( Amer) > 60.0 ml/min (>90) 09/26/16 10:15 Est GFR (Non-Af Amer) > 60.0 ml/min 09/26/16 10:15 BUN/Creatinine Ratio 24.4 09/26/16 10:15 Glucose 163 mg/dL (70-105) H 09/26/16 10:15 POC Glucose 173 MG/DL (70 - 105) H 09/22/16 08:14 Calcium 9.5 mg/dL (8.6-10.3) 09/26/16 10:15 Total Bilirubin 0.5 mg/dL (0.3-1.0) 09/26/16 10:15 AST 19 U/L (13-39) 09/26/16 10:15 ALT 25 U/L (7-52) 09/26/16 10:15 Alkaline Phosphatase 54 U/L (34-104) 09/26/16 10:15 Total Protein 6.7 gm/dL (6.0-8.3) 09/26/16 10:15 Albumin 4.0 gm/dL (4.2-5.5) L 09/26/16 10:15 Globulin 2.7 gm/dL 09/26/16 10:15 Albumin/Globulin Ratio 1.5 (1.0-1.8) 09/26/16 10:15 TSH 0.56 uIU/ml (0.34-5.60) 09/22/16 06:00 - Physical Exam Vitals and I&O: Vital Signs Temp 98.6 F 09/28/16 04:00 Pulse 84 09/28/16 07:00 Resp 16 09/28/16 07:00 BP 120/73 09/28/16 04:00 Pulse Ox 92 09/28/16 07:00 Intake & Output 09/27/16 09/28/16 09/28/16 18:59 06:59 18:59 Intake Total 500 250 Balance 500 250 Intake: Oral 500 250 Other: # Voids 3 1 Active Medications: Current Medications Acetaminophen (Tylenol) 650 mg PO Q4H PRN PRN Reason: pain Stop: 11/21/16 01:14 Albuterol/Ipratropium (Duoneb Neb) 3 ml HHN Q4HRT [facility] Stop: 11/21/16 02:59 Last Admin: 09/28/16 06:36 Dose: 3 ml Budesonide (Pulmicort) 0.5 mg HHN BIDRT [facility] Stop: 11/23/16 18:59 Last Admin: 09/28/16 06:36 Dose: 0.5 mg Lorazepam (Ativan) 0.5 mg PO DAILY PRN; Protocol PRN Reason: Anxiety Stop: 11/21/16 01:14 Last Admin: 09/27/16 20:44 Dose: 0.5 mg Methylprednisolone Sodium Succinate (Solu-Medrol) 40 mg IVP Q12HR [facility] Stop: 11/24/16 20:59 Last Admin: 09/28/16 08:30 Dose: 40 mg Nicotine (Nicotine Transdermal System) 21 mg TD DAILY [facility] Stop: 11/24/16 08:59 Last Admin: 09/28/16 08:30 Dose: 21 mg Zolpidem Tartrate (Ambien) 5 mg PO HS PRN PRN Reason: Insomnia Stop: 11/25/16 09:12 Last Admin: 09/26/16 20:22 Dose: 5 mg General: Alert, Oriented x3, Cooperative, No acute distress HEENT: Atraumatic Neck: Supple Cardiovascular: Regular rate Lungs: Other (Rude respiration, occasional whezzing) Abdomen: Bowel sounds, Soft Extremities: Other (No edema) Neurological: Normal gait Skin: Other (Warm and dry) Psych/Mental Status: Mental status NL Assessment/Plan - Assessment Assessment: Patient is in nasal O2, breathing better. Occasional wheezing, Dx: COPD exacerbation. - Plan Plan: patient is nasal O2, IV ns, Albuterol breathing treatment, AB and corticoids. Follow by Pulmonology. Patient breathing better. Will continue to monitor.
[2016-09-29] MEDS: Albuterol/Ipratropium Neb 3 ML AERS HHN SCH ×3 (05:35→11:56)
[2016-09-29] MEDS: Budesonide 0.5 Mg/2 mL Ud HHN SCH (07:24)
--- NOTE | 2016-09-29 08:43 | General Progress Note ---
Subjective - Review of Systems Service Date: 09/29/16 Subjective: I want to go home. Objective - Results Result Diagrams: 09/26/16 10:15 09/26/16 10:15 Recent Labs: Laboratory Last Values WBC 10.4 Th/cmm (4.8-10.8) 09/26/16 10:15 RBC 5.37 Mil/cmm (3.80-5.80) 09/26/16 10:15 Hgb 16.7 gm/dL (12.6-17.4) D 09/26/16 10:15 Hct 49.6 % (39.0-49.0) H D 09/26/16 10:15 MCV 92.3 fl (80-99) 09/26/16 10:15 MCH 31.1 pg (27.0-31.0) H 09/26/16 10:15 MCHC Differential 33.7 pg (28.0-36.0) 09/26/16 10:15 RDW 13.2 % (11.5-20.0) 09/26/16 10:15 Plt Count 207 Th/cmm (150-400) 09/26/16 10:15 MPV 8.8 fl 09/26/16 10:15 Neutrophils % 89.1 % (40.0-80.0) H 09/22/16 06:00 Band Neutrophils % 1 % (0-10) 09/26/16 10:15 Lymphocytes % 9.5 % (20.0-50.0) L 09/22/16 06:00 Monocytes % 1.2 % (2.0-10.0) L 09/22/16 06:00 Eosinophils % 0.1 % (0.0-5.0) 09/22/16 06:00 Basophils % 0.1 % (0.0-2.0) 09/22/16 06:00 Neutrophils (Manual) 88 % (40-80) H 09/26/16 10:15 Lymphocytes 8 % (20-50) L 09/26/16 10:15 Monocytes 3 % (2-10) 09/26/16 10:15 Platelet Estimate ADEQUATE (NORMAL) 09/26/16 10:15 Platelet Morphology NORMAL (NORMAL) 09/26/16 10:15 RBC Morph Micro Appear NORMAL (NORMAL) 09/26/16 10:15 Sodium 135 mEq/L (136-145) L 09/26/16 10:15 Potassium 4.1 mEq/L (3.5-5.1) 09/26/16 10:15 Chloride 102 mEq/L (98-107) 09/26/16 10:15 Carbon Dioxide 32.0 mEq/L (21.0-31.0) H 09/26/16 10:15 Anion Gap 5.1 (7.0-16.0) L 09/26/16 10:15 BUN 22 mg/dL (7-25) 09/26/16 10:15 Creatinine 0.9 mg/dL (0.7-1.3) 09/26/16 10:15 Est GFR ( Amer) > 60.0 ml/min (>90) 09/26/16 10:15 Est GFR (Non-Af Amer) > 60.0 ml/min 09/26/16 10:15 BUN/Creatinine Ratio 24.4 09/26/16 10:15 Glucose 163 mg/dL (70-105) H 09/26/16 10:15 POC Glucose 173 MG/DL (70 - 105) H 09/22/16 08:14 Calcium 9.5 mg/dL (8.6-10.3) 09/26/16 10:15 Total Bilirubin 0.5 mg/dL (0.3-1.0) 09/26/16 10:15 AST 19 U/L (13-39) 09/26/16 10:15 ALT 25 U/L (7-52) 09/26/16 10:15 Alkaline Phosphatase 54 U/L (34-104) 09/26/16 10:15 Total Protein 6.7 gm/dL (6.0-8.3) 09/26/16 10:15 Albumin 4.0 gm/dL (4.2-5.5) L 09/26/16 10:15 Globulin 2.7 gm/dL 09/26/16 10:15 Albumin/Globulin Ratio 1.5 (1.0-1.8) 09/26/16 10:15 TSH 0.56 uIU/ml (0.34-5.60) 09/22/16 06:00 - Physical Exam Vitals and I&O: Vital Signs Temp 98.5 F 09/29/16 08:00 Pulse 89 09/29/16 08:00 Resp 20 09/29/16 08:00 BP 138/83 09/29/16 08:00 Pulse Ox 94 09/29/16 08:00 Intake & Output 09/28/16 09/29/16 09/29/16 18:59 06:59 18:59 Intake Total 300 350 Balance 300 350 Intake: Oral 300 350 Other: # Voids 3 2 Active Medications: Current Medications Acetaminophen (Tylenol) 650 mg PO Q4H PRN PRN Reason: pain Stop: 11/21/16 01:14 Albuterol/Ipratropium (Duoneb Neb) 3 ml HHN Q4HRT [facility] Stop: 11/21/16 02:59 Last Admin: 09/29/16 07:24 Dose: 3 ml Budesonide (Pulmicort) 0.5 mg HHN BIDRT [facility] Stop: 11/23/16 18:59 Last Admin: 09/29/16 07:24 Dose: 0.5 mg Lorazepam (Ativan) 0.5 mg PO DAILY PRN; Protocol PRN Reason: Anxiety Stop: 11/21/16 01:14 Last Admin: 09/28/16 21:18 Dose: 0.5 mg Methylprednisolone Sodium Succinate (Solu-Medrol) 20 mg IVP Q12HR [facility] Stop: 11/27/16 15:59 Last Admin: 09/28/16 21:14 Dose: 20 mg Nicotine (Nicotine Transdermal System) 21 mg TD DAILY [facility] Stop: 11/24/16 08:59 Last Admin: 09/28/16 08:30 Dose: 21 mg Zolpidem Tartrate (Ambien) 5 mg PO HS PRN PRN Reason: Insomnia Stop: 11/25/16 09:12 Last Admin: 09/26/16 20:22 Dose: 5 mg General: Alert, Oriented x3, Cooperative, No acute distress HEENT: Atraumatic Neck: Supple Cardiovascular: Regular rate Lungs: Other (Bilateral decreased air entry, no whezzing) Abdomen: Bowel sounds, Soft Extremities: Other (No edema) Neurological: Normal gait Skin: Other (Warm and dry) Psych/Mental Status: Mental status NL Assessment/Plan - Assessment Assessment: Patient is in nasal O2, breathing better. Occasional wheezing, Dx: COPD exacerbation. - Plan Plan: patient is nasal O2, IV ns, Albuterol breathing treatment, AB and corticoids. Follow by Pulmonology. Patient breathing better. Will continue to monitor.
[2016-09-29] MEDS: methylPREDNISolone SS 40 mg Vial IVP SCH (08:59)
[2016-09-29] MEDS: Nicotine 21 mg/24 hr Tdm TD SCH (08:59)
[2016-09-29 11:07] LABS: % BASOPHILS 0.5 % (0.0-2.0); % EOSINOPHILS 0.5 % (0.0-5.0); % LYMPHOCYTES 8.9 % (20.0-50.0); % MONOCYTES 4.8 % (2.0-10.0); % NEUTROPHILS 85.3 % (40.0-80.0); HEMATOCRIT 50.2 % (39.0-49.0); HEMOGLOBIN 16.7 gm/dL (12.6-17.4); MEAN CELL VOLUME 92.9 fl (80-99); MEAN CORPUSCULAR HEMOGLOBIN 30.8 pg (27.0-31.0); MEAN CORPUSCULAR HGB CONC 33.2 pg (28.0-36.0); MEAN PLATELET VOLUME 8.4 fl; NEUTROPHILE ABSOLUTE 9.4 Th/cmm (1.8-8.0); PLATELET COUNT 229 Th/cmm (150-400); RED CELL DISTRIBUTION WIDTH 12.8 % (11.5-20.0); WHITE BLOOD COUNT 11.1 Th/cmm (4.8-10.8)
[2016-09-29 11:28] LABS: ALB/GLOB RATIO 1.5 (1.0-1.8); ALKALINE PHOSPHATASE 49 U/L (34-104); ANION GAP 7.3 (7.0-16.0); BILIRUBIN,TOTAL 0.6 mg/dL (0.3-1.0); BUN - UREA NITROGEN 20 mg/dL (7-25); CALCIUM SERUM 9.5 mg/dL (8.6-10.3); CARBON DIOXIDE 30.7 mEq/L (21.0-31.0); CHLORIDE 101 mEq/L (98-107); CREATININE - SERUM 0.8 mg/dL (0.7-1.3); GLUCOSE 90 mg/dL (70-105); SGOT 17 U/L (13-39); SGPT/ALT 30 U/L (7-52); SODIUM SERUM 135 mEq/L (136-145)
--- NOTE | 2016-10-02 00:51 | Discharge Summary ---
DATE OF DISCHARGE: 09/29/2016 CHIEF COMPLAINT: Shortness of breath. HISTORY OF PRESENT ILLNESS: This is the case of a 65-year-old male who referred that he had increasing shortness of breath, reason why he went to Emergency [facility] of [place]. Diagnosis of COPD exacerbation was done. The patient was transferred to [facility] to continue treatment. HOSPITAL COURSE AND TREATMENT: This patient was admitted in the telemetry unit. He was started on nasal oxygen, IV normal saline, IV antibiotic, IV ____ and consult with Dr. Harrell, Pulmonology was requested and recommendations were followed. The patient received albuterol ipratropium breathing treatment every 4 hours and with this treatment and after 8 days in the hospital, it was considered that patient received maximum benefit of hospitalization and the patient could be sent home to continue treatment with primary care physician. At the moment of the discharge, the patient was awake, alert, in no acute distress. [employer] SUPER[employer]OR IN THIS CASE: Dr. Harrell, Pulmonology. DISPOSITION: The patient is sent home with home health to continue treatment with primary care physician. DIAGNOSIS: Chronic obstructive pulmonary disease exacerbation. JOB# [id number]
== END 2016-09-29 15:00 | disposition home or self-care (01) | DRG 189 ==
LOC: TELE 00:01
PROVIDERS: ADMIT General Practice; ATTEND General Practice
DX: J96.20 Acute and chronic respiratory failure, unspecified whether with hypoxia or hypercapnia (principal); J44.0 Chronic obstructive pulmonary disease with (acute) lower respiratory infection; J44.1 Chronic obstructive pulmonary disease with (acute) exacerbation; F41.9 Anxiety disorder, unspecified; J20.9 Acute bronchitis, unspecified; F17.210 Nicotine dependence, cigarettes, uncomplicated; Z87.820 Personal history of traumatic brain injury
CPT/HCPCS: 36415-UA; 71010-TC; 80053-TC; 82948-90; 84443-TC; 85007-TC; 85025-TC; 85027-TC; 94760; J0696; J2920; J7030; Z7610